=== PATIENT | female | born 1960 | race Two or more races ===

== ENCOUNTER 2022-02-18 09:20 | Outpatient (CLI) | payer OTHER | END 2022-02-18 09:31 | disposition home or self-care (01) | LOC: SONOGRAMA 09:20 | PROVIDERS: ATTEND General Practice | DX: K29.70 Gastritis, unspecified, without bleeding (principal); N83.201 Unspecified ovarian cyst, right side ==

== ENCOUNTER → 2022-02-18 10:28 | Outpatient (CLI) | payer OTHER | END | disposition home or self-care (01) | LOC: LAB 10:28 | PROVIDERS: ATTEND General Practice | DX: R73.9 Hyperglycemia, unspecified (principal) ==

== ENCOUNTER 2022-12-31 17:44 | Emergency (ER) | payer OTHER ==
[~2022-12-31] VITALS: Ht 149.9 cm; Wt 45.4 kg
[2022-12-31] MEDS ORDERED: PAXLOVID 300-11 EACH PO (19:37)
== END 2022-12-31 20:35 | disposition home or self-care (01) ==
LOC: ER 17:44
DX: U07.1 COVID-19 (principal); J06.9 Acute upper respiratory infection, unspecified; H93.19 Tinnitus, unspecified ear; Z91.011 Allergy to milk products

== ENCOUNTER 2023-06-16 13:41 | Emergency (ER) | payer OTHER ==
[~2023-06-16] VITALS: Ht 149.9 cm; Wt 51.3 kg
[~2023-06-16 13:41] MED LIST: PAXLOVID 300-11 EACH PO
== END 2023-06-16 18:37 | disposition home or self-care (01) ==
LOC: ER 13:41
DX: J06.9 Acute upper respiratory infection, unspecified (principal); Z20.822 Contact with and (suspected) exposure to COVID-19

== ENCOUNTER 2024-04-27 06:35 | Outpatient (CLI) | payer OTHER ==
[2024-04-27 07:28] LABS: PH,URINE 5.5 (5.0-8.0); URINE APPEARANCE Clear; URINE BILIRRUBIN Negative (NEGATIVE); URINE BLOOD Negative; URINE COLOR Yellow; URINE GLUCOSE Negative (NEGATIVE); URINE KETONE Negative (NEGATIVE); URINE LEUKOCYTE Trace; URINE NITRATE Negative; URINE PROTEIN Negative (NEGATIVE); URINE UROBILINOGEN 0.2 E.U./dl
[2024-04-27 07:29] LABS: URINE BACTERIA 119.6 uL (0.0-1933); URINE EPITHELIAL CELLS 4.6 uL (0.0-38.8); URINE RBC 5.9 uL (0.0-20.8); URINE WBC 3.2 uL (0.0-23.2)
[2024-04-27 07:45] LABS: URINE CAST 0.61 uL (0.0-1.40)
[2024-04-27 07:48] LABS: HEMATOCRIT 36.3 % (36.0-45.00); MEAN CELL VOLUME 87.9 fL (80.00-100.00); MEAN CORPUSCULAR HEMOGLOBIN 29.1 pg (27.00-32.0); MEAN CORPUSCULAR HGB CONC 33.1 g/dl (32.0-36.0); PLATELET COUNT 191 K/uL (150-450); RED BLOOD COUNT 4.12 M/uL (4.00-6.00); RED CELL DISTRIBUTION WIDTH 13.4 % (11.5-14.5)
[2024-04-27 07:58] LABS: ALBUMIN 3.8 gm/dL (3.4-5.0); BILIRUBIN TOTAL 0.45 mg/dL (0.3-1.2); CALCIUM 9.2 mg/dL (8.5-10.1); CHOL HDL RATIO 2.6 (0-5.0); CREATININE SERUM 0.66 mg/dL (0.55-1.02); GFR 91.05; GLOBULINA 3.3 G/DL (2.4-3.5); POTASSIUM 4.78 mEq/L (3.5-5.1); TOTAL PROTEIN 7.1 gm/dL (6.4-8.2)
[2024-04-27 08:19] LABS: C-REACTIVE PROTEIN 0.51 MG/DL (0.00-0.29)
== END 2024-04-27 06:40 | disposition home or self-care (01) ==
LOC: LAB 06:35
PROVIDERS: ATTEND General Practice
DX: I10 Essential (primary) hypertension (principal)

== ENCOUNTER 2024-05-03 11:28 | Outpatient (CLI) | payer OTHER ==
[2024-05-03 14:24] LABS: VITAMIN D3 25 HYDROXY 24.21 ng/ml (30-120)
== END 2024-05-03 11:34 | disposition home or self-care (01) ==
LOC: LAB 11:28
PROVIDERS: ATTEND General Practice
DX: R73.9 Hyperglycemia, unspecified (principal); E55.9 Vitamin D deficiency, unspecified; D64.9 Anemia, unspecified; Z12.11 Encounter for screening for malignant neoplasm of colon

== ENCOUNTER 2024-05-10 07:07 | Outpatient (CLI) | payer OTHER ==
[2024-05-10 08:20] LABS: ob NEGATIVE (NEGATIVE)
== END 2024-05-10 07:10 | disposition home or self-care (01) ==
LOC: LAB 07:07
PROVIDERS: ATTEND General Practice
DX: R73.9 Hyperglycemia, unspecified (principal); E55.9 Vitamin D deficiency, unspecified; D51.9 Vitamin B12 deficiency anemia, unspecified; Z12.11 Encounter for screening for malignant neoplasm of colon

== ENCOUNTER → 2024-10-18 12:44 | Outpatient (CLI) | payer OTHER ==
[2024-10-18 14:24] LABS: ALBUMIN 3.7 gm/dL (3.4-5.0); BILIRUBIN TOTAL 0.51 mg/dL (0.3-1.2); CALCIUM 9.2 mg/dL (8.5-10.1); CHOL HDL RATIO 2.3 (0-5.0); CREATININE SERUM 0.58 mg/dL (0.55-1.02); GFR 105.69; POTASSIUM 4.2 mEq/L (3.5-5.1); TOTAL PROTEIN 6.7 gm/dL (6.4-8.2)
== END | disposition home or self-care (01) ==
LOC: LAB 12:44
PROVIDERS: ATTEND General Practice
DX: R80.9 Proteinuria, unspecified (principal); E78.00 Pure hypercholesterolemia, unspecified

== ENCOUNTER 2025-01-18 08:27 | Outpatient (CLI) | payer OTHER | END 2025-01-18 08:29 | disposition home or self-care (01) | LOC: MAMO-SONO 08:27 | PROVIDERS: ATTEND General Practice | DX: N60.21 Fibroadenosis of right breast (principal); N60.22 Fibroadenosis of left breast ==

== ENCOUNTER 2025-01-18 09:32 | Outpatient (CLI) | payer OTHER ==
[2025-01-18 10:27] LABS: BASO % 0.4 % (0.1-1.2); EOS # 0.02 (0.04-0.54); EOS % 0.4 % (0.7-7.0); HEMATOCRIT 36.1 % (34.1-44.9); HEMOGLOBIN 11.6 g/dL (11.2-15.7); LYMPH # 1.95 (1.18-3.74); LYMPH % 37.4 % (19.3-53.1); MEAN CORPUSCULAR HEMOGLOBIN 28.2 pg (25.6-32.2); MONO # 0.35 (0.24-0.82); MONO % 6.7 % (4.7-12.5); NEUT # 2.86 (1.56-6.13); NEUT % 54.9 % (34.0-71.1); PLATELET COUNT 232 K/uL (163-369); RED BLOOD COUNT 4.12 M/uL (3.93-5.22); RED CELL DISTRIBUTION WIDTH 12.5 % (11.6-14.4)
[2025-01-18 10:29] LABS: URINE BACTERIA 36.7 uL (0.0-1933); URINE EPITHELIAL CELLS 2.2 uL (0.0-38.8); URINE RBC 3.5 uL (0.0-20.8); URINE WBC 5.8 uL (0.0-23.2)
[2025-01-18 10:38] LABS: PH,URINE 5.5 (5.0-8.0); URINE APPEARANCE Clear; URINE BILIRRUBIN Negative (NEGATIVE); URINE BLOOD Negative; URINE CAST 0.14 uL (0.0-1.40); URINE COLOR Yellow; URINE GLUCOSE Negative (NEGATIVE); URINE KETONE Negative (NEGATIVE); URINE LEUKOCYTE Small; URINE NITRATE Negative; URINE PROTEIN Negative (NEGATIVE); URINE UROBILINOGEN 0.2 E.U./dl
[2025-01-18 11:09] LABS: BILIRUBIN TOTAL 0.63 mg/dL (0.3-1.2); CALCIUM 9.2 mg/dL (8.5-10.1); CHOL HDL RATIO 2.5 (0-5.0); CREATININE SERUM 0.62 mg/dL (0.55-1.02); GFR 97.53; GLOBULINA 3.4 G/DL (2.4-3.5); POTASSIUM 4.16 mEq/L (3.5-5.1); TOTAL PROTEIN 7.4 gm/dL (6.4-8.2); TSH 0.639 uIU/mL (0.358-3.74)
[2025-01-18 12:06] LABS: VITAMIN D3 25 HYDROXY 33.27 ng/ml (30-120)
== END 2025-01-18 09:40 | disposition home or self-care (01) ==
LOC: LAB 09:32
PROVIDERS: ATTEND General Practice
DX: E04.1 Nontoxic single thyroid nodule (principal); E78.00 Pure hypercholesterolemia, unspecified; I10 Essential (primary) hypertension; E55.9 Vitamin D deficiency, unspecified; D51.9 Vitamin B12 deficiency anemia, unspecified; Z12.11 Encounter for screening for malignant neoplasm of colon

== ENCOUNTER 2025-01-24 15:16 | Outpatient (CLI) | payer OTHER ==
[2025-01-24 17:31] LABS: ob NEGATIVE (NEGATIVE)
== END 2025-01-24 15:20 | disposition home or self-care (01) ==
LOC: LAB 15:16
PROVIDERS: ATTEND General Practice
DX: E04.1 Nontoxic single thyroid nodule (principal); E78.00 Pure hypercholesterolemia, unspecified; I10 Essential (primary) hypertension; E55.9 Vitamin D deficiency, unspecified; D51.9 Vitamin B12 deficiency anemia, unspecified